=== PATIENT | male | born 2005 | race Caucasian/White ===

== ENCOUNTER 2025-09-28 23:15 | Emergency (ER) | payer OTHER ==
[~2025-09-28] VITALS: Ht 167.6 cm; Wt 63.3 kg
[2025-09-28 23:34] VITALS: O2SAT 100
[2025-09-29] MEDS: TETANUS, DIPHTHERIA, PERTUSSIS VAC/PF 0.5ML (>10YR OLD) IM ONE (01:45)
[2025-09-29] MEDS ORDERED: AMOX1TAB16 MT (02:18)
[2025-09-29 02:43] VITALS: BP 137/64; PULSE 59; RESP 18; TEMP 36.8; O2SAT 100
== END 2025-09-29 02:45 | disposition home or self-care (01) ==
LOC: ER 23:15
DX: S60.411A Abrasion of left index finger, initial encounter (principal); S61.251A Open bite of left index finger without damage to nail, initial encounter; W55.01XA Bitten by cat, initial encounter; Y93.89 Activity, other specified; Y92.89 Other specified places as the place of occurrence of the external cause; Y99.8 Other external cause status
CPT/HCPCS: 90471; 90715; 99283